=== PATIENT | male | born 1995 | race Caucasian/White ===

== ENCOUNTER 2017-02-16 12:39 | Emergency (ER) | payer SELFPAY ==
[~2017-02-16] VITALS: Ht 167.6 cm; Wt 70.0 kg
[2017-02-16 12:42] VITALS: Ht 167.6 cm; Wt 70.0 kg
[2017-02-16] MEDS ORDERED: SOD CHLORIDE 0.9% 1,000 ML IV STA (12:49)
[2017-02-16 13:30] LABS: BASOPHIL # 0.1 10^3/ul (0.0-0.1); BASOPHILS % 0.6 % (0.0-2.0); EOSINOPHILS # 0.1 10^3/ul (0.0-0.5); EOSINOPHILS % 0.5 % (0.0-7.0); HEMATOCRIT 50.9 % (42.0-52.0); HEMOGLOBIN 16.9 g/dl (14.0-18.0); LYMPHOCYTES # 2.2 10^3/ul (0.8-2.9); LYMPHOCYTES % 19.6 % (15.0-51.0); MEAN CORPUSCULAR HGB CONC 33.2 g/dl (32.0-37.0); MEAN CORPUSCULAR VOLUME 93.4 fl (82.0-101.0); MEAN PLATELET VOLUME 9.7 fl (7.4-10.4); MONOCYTE # 0.3 10^3/ul (0.3-0.9); MONOCYTES % 2.9 % (0.0-11.0); NEUTROPHIL # 8.5 10^3/ul (1.6-7.5); PLATELET COUNT 322 10^3/UL (140-415); RED BLOOD COUNT 5.45 10^6/ul (4.70-6.10); RED CELL DISTRIBUTION WIDTH 14.4 % (11.5-14.5); WHITE BLOOD COUNT 11.2 10^3/ul (4.8-10.8)
[2017-02-16 13:47] LABS: ALANINE AMINOTRANSFERASE 129 IU/L (13-69); ALBUMIN 4.9 g/dl (3.3-4.9); ALBUMIN/GLOBULIN RATIO 1.63; ALKALINE PHOSPHATASE 99 IU/L (42-121); ANION GAP 25 (8-16); ASPARTATE AMINO TRANSFERASE 76 IU/L (15-46); BILIRUBIN,INDIRECT 0.1 mg/dl (0-1.1); BILIRUBIN,TOTAL 0.1 mg/dl (0.2-1.3); BLOOD UREA NITROGEN 11 mg/dl (7-20); CALCIUM 8.6 mg/dl (8.4-10.2); CARBON DIOXIDE 23 mmol/L (21-31); CHLORIDE 100 mmol/L (97-110); GLUCOSE 152 mg/dl (70-220); POTASSIUM 4.1 mmol/L (3.5-5.1); SODIUM 144 mmol/L (135-144); TOTAL PROTEIN 7.9 g/dl (6.1-8.1)
[2017-02-16 13:48] LABS: ACETAMINOPHEN < 10.0 ug/ml (10.0-30.0)
[2017-02-16 13:49] LABS: SALICYLATE < 1.0 mg/dl (5.0-30.0)
--- NOTE | 2017-02-16 14:42 | ERD ---
ER Documentation Chief Complaint Chief Complaint BIB RA 40 USED HEROIN NARCAN 2MG IM GIVEN BY EMS. PT A&OX4. NO RESP DISTRES HPI Patient is a 22-year-old male with a history of hypertension and tachycardia who presents with an overdose. He was brought in by ambulance. Please note the history and physical exam is limited secondary to the patient's recall of the event. The patient had an overdose on heroin was given Narcan. He also said that he drank alcohol last night. He is homeless. He does not currently have a primary doctor. ROS All systems reviewed and are negative except as per history of present illness. Medications Home Meds Reported Medications [None] No Conflict Check 05/06/10 Allergies Allergies: Coded Allergies: No Known Allergies (Verified Allergy, Mild, 05/06/10) PMhx/Soc Positive for hypertension and tachycardia History of Surgery: No Anesthesia Reaction: No Hx Neurological Disorder: No Hx Respiratory Disorders: No Hx Cardiac Disorders: No Hx Psychiatric Problems: No Hx Miscellaneous Medical Probl: No Hx Alcohol Use: No Hx Substance Use: No Hx Tobacco Use: No FmHx Family History: diabetes Physical Exam Vitals Vital Signs Date Time Temp Pulse Resp B/P Pulse Ox O2 Delivery O2 Flow Rate FiO2 02/16/17 12:55 Nasal Cannula 2 02/16/17 12:42 97.4 122 16 156/122 100 Physical Exam Const: Mild distress Head: Atraumatic Eyes: Normal Conjunctiva ENT: Normal External Ears, Nose and Mouth. Neck: Full range of motion..~ No meningismus. Resp: Clear to auscultation bilaterally Cardio: Regular rate and rhythm, no murmurs Abd: Soft, non tender, non distended. Normal bowel sounds Skin: No petechiae or rashes Back: No midline or flank tenderness Ext: No cyanosis, or edema Neur: Awake and alert Psych: Normal Mood and Affect Result Diagram: 02/16/17 1305 02/16/17 1305 Results 24 hrs Laboratory Tests Test 02/16/17 13:05 White Blood Count 11.210^3/ul Red Blood Count 5.4510^6/ul Hemoglobin 16.9g/dl Hematocrit 50.9% Mean Corpuscular Volume 93.4fl Mean Corpuscular Hemoglobin 31.0pg Mean Corpuscular Hemoglobin Concent 33.2g/dl Red Cell Distribution Width 14.4% Platelet Count 33551^3/UL Mean Platelet Volume 9.7fl Neutrophils % 76.0% Lymphocytes % 19.6% Monocytes % 2.9% Eosinophils % 0.5% Basophils % 0.6% Nucleated Red Blood Cells % 0.0/100WBC Neutrophils # 8.510^3/ul Lymphocytes # 2.210^3/ul Monocytes # 0.310^3/ul Eosinophils # 0.110^3/ul Basophils # 0.110^3/ul Nucleated Red Blood Cells # 0.010^3/ul Sodium Level 144mmol/L Potassium Level 4.1mmol/L Chloride Level 100mmol/L Carbon Dioxide Level 23mmol/L Anion Gap 25 Blood Urea Nitrogen 11mg/dl Creatinine 1.20mg/dl Glucose Level 152mg/dl Calcium Level 8.6mg/dl Total Bilirubin 0.1mg/dl Direct Bilirubin 0.00mg/dl Indirect Bilirubin 0.1mg/dl Aspartate Amino Transf (AST/SGOT) 76IU/L Alanine Aminotransferase (ALT/SGPT) 129IU/L Alkaline Phosphatase 99IU/L Total Protein 7.9g/dl Albumin 4.9g/dl Globulin 3.00g/dl Albumin/Globulin Ratio 1.63 Salicylates Level < 1.0mg/dl Acetaminophen Level < 10.0ug/ml Ethyl Alcohol Level 113.0mg/dl Current Medications Medications (Trade) Dose Ordered Sig/Timmy Route PRN Reason Start Time Stop Time Status Last Admin Dose Admin Sodium Chloride (NS) 1,000 ml @ 1,000 mls/hr Q1H STAT IV 02/16/17 12:49 02/16/17 13:48 DC 02/16/17 12:55 Procedures/MDM EKG read by me: Rate/Rhythm: Sinus tachycardia Intervals: Normal Impression: Sinus tachycardia without ischemia Smoking Cessation Therapy: Pt. was lectured for greater than 3 minutes on the health risks of continued smoking and the benefits of cessation. Patient is a 22-year-old male who presents with overdose on heroin. This was a accidental overdose and he was given Narcan by paramedics. We have watched him in the ER for 2 hours and he has not had any respiratory depression at this time. I believe the patient is stable for outpatient management. He has a depressed affect but no suicidal or homicidal ideation and I do not believe he requires a 5150 hold at this time. The patient will be discharged but should follow-up with the local clinics within 24-48 hours. I told him to stop smoking and stop using illicit drugs. He can return for any worsening symptoms. Departure Diagnosis: Primary Impression: Alcohol abuse Additional Impressions: Drug overdose Encounter type: initial encounter Injury intent: accidental or unintentional Qualified Code: T50.901A - Accidental drug overdose, initial encounter Heroin overdose Encounter type: initial encounter Injury intent: accidental or unintentional Qualified Code: T40.1X1A - Accidental overdose of heroin, initial encounter Condition: Fair Patient Instructions: Overdose, Accidental (Adult) Referrals: [facility] YOU HAVE RECEIVED A MEDICAL SCREENING EXAM AND THE RESULTS INDICATE THAT YOU DO NOT HAVE A CONDITION THAT REQUIRES URGENT TREATMENT IN THE EMERGENCY DEPARTMENT. FURTHER EVALUATION AND TREATMENT OF YOUR CONDITION CAN WAIT UNTIL YOU ARE SEEN IN YOUR DOCTORS OFFICE WITHIN THE NEXT 1-2 DAYS. IT IS YOUR RESPONSIBILITY TO MAKE AN APPOINTMENT FOR FOLOW-UP CARE. IF YOU HAVE A PRIMARY DOCTOR --you should call your primary doctor and schedule an appointment IF YOU DO NOT HAVE A PRIMARY DOCTOR YOU CAN CALL OUR PHYSICIAN REFERRAL HOTLINE AT IF YOU CAN NOT AFFORD TO SEE A PHYSICIAN YOU CAN CHOSE FROM THE FOLLOWING [facility] [address] [facility] [place]. [facility] [address] [facility] [facility] [address] [facility] [facility] [address] [facility] [facility] [address] [facility]. [facility]. [address] Additional Instructions: Call your primary care doctor TOMORROW for an appointment during the next 1-2 days.See the doctor sooner or return here if your condition worsens before your appointment time. BRIDGETTE PRICE MD Feb 16, 2017 14:42
[2017-02-16 15:45] VITALS: BP 128/64; PULSE 114; RESP 20; TEMP 97.8
== END 2017-02-16 16:34 | disposition home or self-care (01) ==
LOC: E/R 12:39
DX: K08.89 Other specified disorders of teeth and supporting structures (principal); R09.81 Nasal congestion; J02.9 Acute pharyngitis, unspecified; R11.10 Vomiting, unspecified; R50.9 Fever, unspecified
CPT/HCPCS: 80053; 80306; 85025; 93005; 99284; J7030